=== PATIENT | female | born 1940 | race American Indian/Alaskan Native ===

== ENCOUNTER 2017-05-04 15:03 | Outpatient (CLI) | payer MEDICARE, OTHER ==
--- NOTE | 2017-05-04 16:09 | XRay Report ---
Left knee 3 views: History: Acute left knee pain. Findings: Narrowing of medial, lateral and patellofemoral compartment knee joint, most pronounced in the patellofemoral compartment. Sclerotic adjacent articular surfaces with peripheral osteophytes suggestive of degenerative changes. Chondrocalcinosis in medial and lateral compartment. No soft tissue calcification. 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
== END 2017-05-04 15:04 | disposition home or self-care (01) ==
LOC: SPVIMAG 15:03
PROVIDERS: ATTEND Internal Medicine
DX: M17.12 Unilateral primary osteoarthritis, left knee (principal); M11.262 Other chondrocalcinosis, left knee; M25.762 Osteophyte, left knee